=== PATIENT | female | born 1960 | race African-American/Black ===

== ENCOUNTER 2017-12-30 14:30 | Inpatient (IN) | payer BC ==
[2017-12-30 14:55] LABS: POC GLUCOSE 522 mg/dL (70-99)
[2017-12-30] MEDS ORDERED: ACETAMINOPHEN 325 MG TABLET. PO ×2 (15:15)
[2017-12-30] MEDS ORDERED: ONDANSETRON PF 4 MG/2 ML VIAL. IV ×2 (15:15)
[2017-12-30] MEDS ORDERED: DEXTROSE 50% 25 GM / 50ML DISP.SYRIN. IV ×2 (15:15)
[2017-12-30 15:47] LABS: POC GLUCOSE 505 mg/dL (70-99)
[2017-12-30] MEDS: INSULIN REGULAR VIAL 150 UNIT in 0.9 % SODIUM CHLORIDE 150ML 150 ML IV (15:50)
[2017-12-30] MEDS: PREGABALIN 50 MG CAPSULE PO ×4 (16:00→20:17)
[2017-12-30] MEDS: ASPIRIN ENTERIC COATED 81 MG TABLET.DR. PO ×2 (16:00)
[2017-12-30] MEDS: LOSARTAN POTASSIUM 50 MG TABLET. PO ×2 (16:00)
[2017-12-30] MEDS: PANTOPRAZOLE 40 MG TABLET.DR. PO ×2 (16:19)
[2017-12-30 16:36] LABS: ADD MAN DIFF? NO
[2017-12-30 16:44] LABS: BASO % 0 % (0-3); EOS # 0.1 x10^3/uL (0.0-0.7); EOS % 1 % (0-3); HEMATOCRIT 42.2 % (36.0-47.0); LYMPH # 2.1 x10^3/uL (1.0-4.8); LYMPH % 21 % (24-48); MEAN CORPUSCULAR HEMOGLOBIN 29 pg (25-35); MEAN CORPUSCULAR HGB CONC 33 g/dL (31-37); MEAN CORPUSCULAR VOLUME 87 fL (79-100); MONO # 0.5 x10^3/uL (0.0-1.1); MONO % 5 % (0-9); NEUT # 7.6 x10^3uL (1.8-7.7); NEUT % 74 % (31-73); PLATELET COUNT 394 x10^3/uL (140-400); RED BLOOD COUNT 4.83 x10^6/uL (3.50-5.40); RED CELL DISTRIBUTION WIDTH 12.8 % (11.5-14.5); WHITE BLOOD COUNT 10.3 x10^3/uL (4.0-11.0)
[2017-12-30] MEDS: IV NORMAL SALINE 1000ML BAG 1,000 ML IV ×2 (16:47)
[2017-12-30 16:51] LABS: ANION GAP 11 (6-14); BLOOD UREA NITROGEN 22 mg/dL (7-20); CALCIUM 9.4 mg/dL (8.5-10.1); CARBON DIOXIDE 29 mmol/L (21-32); CHLORIDE 94 mmol/L (98-107); CREATININE 1.5 mg/dL (0.6-1.0); GLUCOSE 472 mg/dL (70-99); POTASSIUM 3.1 mmol/L (3.5-5.1); SODIUM 134 mmol/L (136-145)
[2017-12-30 16:51] LABS: POC GLUCOSE 489 mg/dL (70-99)
[2017-12-30] MEDS: POTASSIUM CHLORIDE 20 MEQ TABLET.ER. PO ×2 (17:24)
[2017-12-30] MEDS: metFORMIN 500 MG TABLET PO ×2 (17:24)
[2017-12-30 17:55] LABS: POC GLUCOSE 287 mg/dL (70-99)
[2017-12-30 18:50] LABS: POC GLUCOSE 217 mg/dL (70-99)
[2017-12-30 20:15] LABS: POC GLUCOSE 145 mg/dL (70-99)
[2017-12-30 22:25] LABS: POC GLUCOSE 168 mg/dL (70-99)
[2017-12-30 22:25] LABS: POC GLUCOSE 113 mg/dL (70-99)
[2017-12-30 23:37] LABS: POC GLUCOSE 111 mg/dL (70-99)
[2017-12-31 00:40] LABS: POC GLUCOSE 102 mg/dL (70-99)
[2017-12-31] MEDS ORDERED: DEXTROSE 50% 25 GM / 50ML DISP.SYRIN. IV ×2 (01:30)
[2017-12-31 01:48] LABS: POC GLUCOSE 144 mg/dL (70-99)
[2017-12-31 02:52] LABS: POC GLUCOSE 135 mg/dL (70-99)
[2017-12-31 03:20] LABS: HEMOGLOBIN A1C 8.8 % (4.8-5.6)
[2017-12-31 03:59] LABS: POC GLUCOSE 128 mg/dL (70-99)
[2017-12-31 05:03] LABS: POC GLUCOSE 137 mg/dL (70-99)
[2017-12-31 06:08] LABS: POC GLUCOSE 156 mg/dL (70-99)
[2017-12-31 06:10] LABS: ADD MAN DIFF? NO
[2017-12-31 06:18] LABS: BASO % 0 % (0-3); EOS # 0.2 x10^3/uL (0.0-0.7); EOS % 2 % (0-3); HEMATOCRIT 38.6 % (36.0-47.0); HEMOGLOBIN 13.1 g/dL (12.0-15.5); LYMPH # 2.9 x10^3/uL (1.0-4.8); LYMPH % 32 % (24-48); MEAN CORPUSCULAR HEMOGLOBIN 30 pg (25-35); MEAN CORPUSCULAR HGB CONC 34 g/dL (31-37); MEAN CORPUSCULAR VOLUME 87 fL (79-100); MONO # 0.9 x10^3/uL (0.0-1.1); MONO % 10 % (0-9); NEUT % 56 % (31-73); PLATELET COUNT 391 x10^3/uL (140-400); RED BLOOD COUNT 4.43 x10^6/uL (3.50-5.40); RED CELL DISTRIBUTION WIDTH 12.7 % (11.5-14.5)
[2017-12-31 06:47] LABS: ANION GAP 7 (6-14); BLOOD UREA NITROGEN 27 mg/dL (7-20); CALCIUM 8.4 mg/dL (8.5-10.1); CARBON DIOXIDE 30 mmol/L (21-32); CHLORIDE 103 mmol/L (98-107); CREATININE 1.4 mg/dL (0.6-1.0); GFR 46.6; GLUCOSE 158 mg/dL (70-99); MAGNESIUM 1.4 mg/dL (1.8-2.4); POTASSIUM 3.2 mmol/L (3.5-5.1); SODIUM 140 mmol/L (136-145)
[2017-12-31 07:08] LABS: POC GLUCOSE 157 mg/dL (70-99)
[2017-12-31] MEDS: IV NORMAL SALINE 1000ML BAG 1,000 ML IV ×4 (07:45→23:01)
[2017-12-31] MEDS: metFORMIN 500 MG TABLET PO ×4 (08:29→17:11)
[2017-12-31] MEDS: PANTOPRAZOLE 40 MG TABLET.DR. PO ×2 (08:29)
[2017-12-31] MEDS: ASPIRIN ENTERIC COATED 81 MG TABLET.DR. PO ×2 (08:29)
[2017-12-31] MEDS: PREGABALIN 50 MG CAPSULE PO ×6 (08:31→20:40)
[2017-12-31] MEDS: INSULIN ASPART 300 UNITS/3 ML INSULN.PEN SQ ×14 (08:42→17:11)
[2017-12-31 08:43] LABS: POC GLUCOSE 211 mg/dL (70-99)
[2017-12-31] MEDS: LOSARTAN POTASSIUM 50 MG TABLET. PO ×2 (09:00)
[2017-12-31 12:00] LABS: POC GLUCOSE 309 mg/dL (70-99)
[2017-12-31 12:19] LABS: BILIRUBIN,URINE SMALL (NEG); CLARITY,URINE CLEAR; COLOR,URINE YELLOW; GLUCOSE,URINE 100 mg/dL (NEG); NITRITE,URINE NEGATIVE (NEG); PH,URINE 5.5; PROTEIN,URINE NEGATIVE (NEG-TRACE)
[2017-12-31] MEDS: POTASSIUM CHLORIDE 20 MEQ TABLET.ER. PO ×4 (12:21→17:11)
[2017-12-31 12:34] LABS: HYALINE CASTS, URINE MODERATE /HPF
[2017-12-31 12:35] LABS: BACTERIA,URINE FEW /HPF (0-FEW); RBC,URINE 0 /HPF (0-2); SQUAMOUS EPITHELIAL CELL,UR FEW /LPF; YEAST,URINE PRESENT /HPF
[2017-12-31] MEDS: MAGNESIUM SULFATE 4GM 100 ML IV ×2 (15:04)
[2017-12-31 17:44] LABS: POC GLUCOSE 155 mg/dL (70-99)
[2017-12-31] MEDS: ATORVASTATIN CALCIUM 10 MG TABLET. PO ×2 (20:40)
[2017-12-31] MEDS: INSULIN DETEMIR 300 UNITS/3 ML INSULN.PEN. SQ ×2 (20:54)
[2017-12-31 21:00] LABS: POC GLUCOSE 205 mg/dL (70-99)
[2017-12-31] MEDS ORDERED: INSULIN DETEMIR 300 UNITS/3 ML INSULN.PEN. SQ ×2 (21:00)
[2018-01-01 04:46] LABS: ANION GAP 9 (6-14); BLOOD UREA NITROGEN 22 mg/dL (7-20); CALCIUM 9.3 mg/dL (8.5-10.1); CARBON DIOXIDE 27 mmol/L (21-32); CHLORIDE 103 mmol/L (98-107); CREATININE 1.2 mg/dL (0.6-1.0); GFR 55.6; GLUCOSE 226 mg/dL (70-99); MAGNESIUM 2.1 mg/dL (1.8-2.4); POTASSIUM 3.7 mmol/L (3.5-5.1); SODIUM 139 mmol/L (136-145)
[2018-01-01 04:56] LABS: THYROID STIM HORMONE (TSH) 1.129 uIU/mL (0.358-3.74)
[2018-01-01] MEDS: INSULIN ASPART 300 UNITS/3 ML INSULN.PEN SQ ×8 (08:00→12:15)
[2018-01-01 08:16] LABS: POC GLUCOSE 182 mg/dL (70-99)
[2018-01-01] MEDS: metFORMIN 500 MG TABLET PO ×2 (08:20)
[2018-01-01] MEDS: PREGABALIN 50 MG CAPSULE PO ×2 (08:20)
[2018-01-01] MEDS: ASPIRIN ENTERIC COATED 81 MG TABLET.DR. PO ×2 (08:20)
[2018-01-01] MEDS: PANTOPRAZOLE 40 MG TABLET.DR. PO ×2 (08:20)
[2018-01-01 11:20] LABS: POC GLUCOSE 172 mg/dL (70-99)
== END 2018-01-01 12:45 | disposition home or self-care (01) | DRG 639 ==
LOC: 5 SOUTH 14:30
PROVIDERS: Internal Medicine
DX: E11.65 Type 2 diabetes mellitus with hyperglycemia (principal); E11.22 Type 2 diabetes mellitus with diabetic chronic kidney disease; N18.3 Chronic kidney disease, stage 3 (moderate); E83.42 Hypomagnesemia; I12.9 Hypertensive chronic kidney disease with stage 1 through stage 4 chronic kidney disease, or unspecified chronic kidney disease; E78.5 Hyperlipidemia, unspecified; E87.6 Hypokalemia; J44.9 Chronic obstructive pulmonary disease, unspecified; F17.210 Nicotine dependence, cigarettes, uncomplicated; K21.9 Gastro-esophageal reflux disease without esophagitis; Z79.4 Long term (current) use of insulin; Z79.82 Long term (current) use of aspirin; Z80.3 Family history of malignant neoplasm of breast; Z82.3 Family history of stroke; Z82.49 Family history of ischemic heart disease and other diseases of the circulatory system; Z90.710 Acquired absence of both cervix and uterus; Z83.3 Family history of diabetes mellitus; Z88.0 Allergy status to penicillin
CPT/HCPCS: 36415; 71046; 80048; 81001; 82962; 83036; 83735; 84443; 85025; 87086; 93005; 97161-GP; 97165-GO; J1815; J3475; J7030